=== PATIENT | female | born 1990 | race Caucasian/White ===

== ENCOUNTER 2020-03-21 23:53 | Emergency (ER) | payer BC ==
[~2020-03-21] VITALS: Ht 157.5 cm; Wt 59.0 kg
[2020-03-22 00:28] LABS: URINE HCG NEGATIVE (NEG)
[2020-03-22 00:58] LABS: CLARITY,URINE CLEAR (Clear); COLOR,URINE STRAW (Yellow); GLUCOSE, URINE 100 mg/dl (Neg); KETONES,URINE NEGATIVE (Neg); LEUKOCYTE ESTERASE ,URINE NEGATIVE (Neg); NITRITES, URINE NEGATIVE (Neg); OCCULT BLOOD,URINE TRACE-INTACT (Neg); PROTEIN,URINE NEGATIVE (Neg); UROBILINOGEN,URINE 0.2 E.U/dL (0.2-1.0)
[2020-03-22 01:00] LABS: UA COLLECTION TYPE CLN CATCH MIDSTREAM
[2020-03-22 01:07] LABS: BACTERIA,URINE NONE SEEN /HPF (Neg); MUCUS STRANDS NONE SEEN /LPF (Neg); RBC,URINE 0-2 /HPF (0-2); SQUAMOUS EPITHELIAL CELL,UR FEW /LPF (FEW); WBC,URINE NONE SEEN /HPF (0-4)
[2020-03-22] MEDS ORDERED: NAPR-56 PO (01:29)
[2020-03-22] MEDS ORDERED: FLO0.4C PO (01:29)
[2020-03-22] MEDS ORDERED: tamsulosin 0.4mg capsule PO SCH (01:30)
[2020-03-22] MEDS ORDERED: naproxen 500mg tablet PO ONE (01:30)
[2020-03-22 02:11] VITALS: BP 124/72
== END 2020-03-22 02:15 | disposition home or self-care (01) ==
LOC: ER 23:54
DX: N23 Unspecified renal colic (principal); Z87.442 Personal history of urinary calculi; Z79.899 Other long term (current) drug therapy
CPT/HCPCS: 81001; 81025; 99283

== ENCOUNTER 2020-03-24 18:44 | Emergency (ER) | payer BC ==
[~2020-03-24] VITALS: Ht 157.5 cm; Wt 54.5 kg
[~2020-03-24 18:44] MED LIST: FLO0.4C PO; NAPR-56 PO
[2020-03-24 18:47] VITALS: BP 139/89
[2020-03-24] MEDS ORDERED: normal saline 1000ML IV soln IVB ONE (18:55)
[2020-03-24 19:24] LABS: BASOPHILS % (AUTO) 0.2 % (0-1); EOSINOPHILS % (AUTO) 0 % (0-6); HEMATOCRIT 39.9 % (35.0-45.0); HEMOGLOBIN 13.2 g/dl (12.0-16.0); LYMPHOCYTES % (AUTO) 8.6 % (21-51); MEAN CORPUSCULAR HEMOGLOBIN 28.9 PG (27.0-31.0); MEAN CORPUSCULAR HGB CONC 33.2 g/dL (33.0-36.5); MEAN CORPUSCULAR VOLUME 87.2 FL (78-98); MEAN PLATELET VOLUME 8.1 FL (7.4-10.4); MONOCYTES # (AUTO) 0.2 X10'3 (0-0.9); MONOCYTES % (AUTO) 1.4 % (2-12); NEUTROPHILS % (AUTO) 89.8 % (42-75); PLATELET COUNT 305 X10'3 (140-440); RED BLOOD COUNT 4.57 X10'6 (4.20-5.60); RED CELL DISTRIBUTION WIDTH 14.4 % (11.5-14.5); WHITE BLOOD COUNT 11.2 X10'3 (4.5-11.0)
[2020-03-24 19:32] LABS: CLARITY,URINE CLEAR (Clear); COLOR,URINE STRAW (Yellow); GLUCOSE, URINE NEGATIVE (Neg); KETONES,URINE NEGATIVE (Neg); LEUKOCYTE ESTERASE ,URINE NEGATIVE (Neg); NITRITES, URINE NEGATIVE (Neg); OCCULT BLOOD,URINE NEGATIVE (Neg); PH,URINE 7.5 (4.8-8.0); PROTEIN,URINE NEGATIVE (Neg); URINE HCG NEGATIVE (NEG); UROBILINOGEN,URINE 0.2 E.U/dL (0.2-1.0)
[2020-03-24 19:33] LABS: UA COLLECTION TYPE CLN CATCH MIDSTREAM
[2020-03-24 19:43] LABS: ALANINE AMINOTRANSFERASE 27 U/L (12-78); ALBUMIN 4.6 G/DL (3.4-5.0); ALBUMIN/GLOBULIN RATIO 1.2 (1.1-1.5); ALKALINE PHOSPHATASE 82 IU/L (46-116); ANION GAP 12 (8-16); ASPARTATE AMINO TRANSFERASE 18 U/L (10-37); BILIRUBIN,TOTAL 0.3 MG/DL (0.1-1.0); BLOOD UREA NITROGEN 14 MG/DL (7-18); BUN/CREATININE RATIO 16.9 (6.6-38.0); CALCIUM 9.4 MG/DL (8.5-10.1); CHLORIDE 103 MMOL/L (99-107); CREATININE 0.83 MG/DL (0.40-0.90); GLUCOSE 118 MG/DL (70-104); POTASSIUM 3.5 MMOL/L (3.5-5.1); SODIUM 138 MMOL/L (135-145); TOTAL CARBON DIOXIDE 22.6 MMOL/L (24-32); TOTAL PROTEIN 8.4 G/DL (6.4-8.2); eGFR 81 ML/MIN
== END 2020-03-24 20:09 | disposition home or self-care (01) ==
LOC: ER 18:45
DX: E86.0 Dehydration (principal); R42 Dizziness and giddiness; R00.2 Palpitations; R06.02 Shortness of breath; Z87.442 Personal history of urinary calculi; Z79.899 Other long term (current) drug therapy
CPT/HCPCS: 36415; 80053; 81003; 81025; 85025; 93005; 99284; J7030

== ENCOUNTER 2020-04-07 12:14 | Emergency (ER) | payer BC ==
[~2020-04-07] VITALS: Ht 157.5 cm; Wt 60.0 kg
[2020-04-07 12:28] VITALS: BP 115/72
== END 2020-04-07 15:54 | disposition left against medical advice (07) ==
LOC: ER 12:14
DX: R05 Cough (principal); Z53.21 Procedure and treatment not carried out due to patient leaving prior to being seen by health care provider

== ENCOUNTER 2020-04-07 23:08 | Emergency (ER) | payer BC ==
[~2020-04-07] VITALS: Ht 157.5 cm; Wt 59.1 kg
[2020-04-08 01:01] VITALS: BP 123/82
== END 2020-04-08 01:05 | disposition home or self-care (01) ==
LOC: ER 23:09
DX: M79.662 Pain in left lower leg (principal); R05 Cough; Z87.442 Personal history of urinary calculi; Z79.899 Other long term (current) drug therapy
CPT/HCPCS: 93971; 99281

== ENCOUNTER 2022-01-11 14:18 | Emergency (ER) | payer BC, OTHER ==
[~2022-01-11] VITALS: Ht 157.5 cm; Wt 62.6 kg
[2022-01-11 14:27] VITALS: BP 139/78
== END 2022-01-11 16:31 | disposition home or self-care (01) ==
LOC: ER 14:18
DX: J06.9 Acute upper respiratory infection, unspecified (principal); Z20.822 Contact with and (suspected) exposure to COVID-19; R05.9 Cough, unspecified; R07.89 Other chest pain; Z87.442 Personal history of urinary calculi
CPT/HCPCS: 71045; 87635; 93005; 99285; C9803

== ENCOUNTER 2022-07-24 11:13 | Emergency (ER) | payer OTHER ==
[~2022-07-24] VITALS: Ht 157.5 cm; Wt 63.6 kg
[2022-07-24 11:17] VITALS: BP 120/63
[2022-07-24 12:45] LABS: CLARITY,URINE CLEAR (Clear); COLOR,URINE YELLOW (Yellow); GLUCOSE, URINE NEGATIVE (Neg); KETONES,URINE NEGATIVE (Neg); LEUKOCYTE ESTERASE ,URINE NEGATIVE (Neg); NITRITES, URINE NEGATIVE (Neg); OCCULT BLOOD,URINE NEGATIVE (Neg); PH,URINE 6.5 (4.8-8.0); PROTEIN,URINE NEGATIVE (Neg); UROBILINOGEN,URINE 0.2 E.U/dL (0.2-1.0)
[2022-07-24 12:51] LABS: BASOPHILS # (AUTO) 0.1 X10'3 (0-0.2); BASOPHILS % (AUTO) 0.8 % (0-1); EOSINOPHILS # (AUTO) 0.1 X10'3 (0-0.9); EOSINOPHILS % (AUTO) 0.8 % (0-6); HEMATOCRIT 38.5 % (35.0-45.0); HEMOGLOBIN 12.9 g/dl (12.0-16.0); LYMPHOCYTES # (AUTO) 1.7 X10'3 (1.1-4.8); LYMPHOCYTES % (AUTO) 21.4 % (21-51); MEAN CORPUSCULAR HEMOGLOBIN 30.6 PG (27.0-31.0); MEAN CORPUSCULAR HGB CONC 33.6 g/dL (33.0-36.5); MEAN CORPUSCULAR VOLUME 91.1 FL (78-98); MEAN PLATELET VOLUME 8.5 FL (7.4-10.4); MONOCYTES # (AUTO) 0.6 X10'3 (0-0.9); MONOCYTES % (AUTO) 7.7 % (2-12); NEUTROPHILS # (AUTO) 5.6 X10'3 (1.8-7.7); NEUTROPHILS % (AUTO) 69.3 % (42-75); PLATELET COUNT 225 X10'3 (140-440); RED BLOOD COUNT 4.23 X10'6 (4.20-5.60); RED CELL DISTRIBUTION WIDTH 12.6 % (11.5-14.5); WHITE BLOOD COUNT 8.1 X10'3 (4.5-11.0)
[2022-07-24 12:53] LABS: UA COLLECTION TYPE CLN CATCH MIDSTREAM; URINE HCG POSITIVE (NEG)
[2022-07-24 13:11] LABS: ALANINE AMINOTRANSFERASE 22 U/L (12-78); ALBUMIN/GLOBULIN RATIO 1.1 (1.1-1.5); ALKALINE PHOSPHATASE 55 IU/L (46-116); ANION GAP 9 (8-16); ASPARTATE AMINO TRANSFERASE 23 U/L (10-37); BILIRUBIN,TOTAL 0.2 MG/DL (0.1-1.0); BLOOD UREA NITROGEN 8 MG/DL (7-18); BUN/CREATININE RATIO 14.3 (10.0-20.0); CALCIUM 8.9 MG/DL (8.5-10.1); CHLORIDE 100 MMOL/L (99-107); CREATININE 0.56 MG/DL (0.40-0.90); GLUCOSE 83 MG/DL (70-104); POTASSIUM 3.5 MMOL/L (3.5-5.1); SODIUM 135 MMOL/L (135-145); TOTAL PROTEIN 7.6 G/DL (6.4-8.2); eGFR > 90 ML/MIN
[2022-07-24 13:38] LABS: BETA HCG,QUANTITATIVE 136105 mIU/ml
== END 2022-07-24 13:53 | disposition home or self-care (01) ==
LOC: ER 11:14
DX: O46.91 Antepartum hemorrhage, unspecified, first trimester (principal); F32.9 Major depressive disorder, single episode, unspecified; Z87.442 Personal history of urinary calculi; Z3A.01 Less than 8 weeks gestation of pregnancy; Z79.899 Other long term (current) drug therapy
CPT/HCPCS: 36415; 76801; 80053; 81003; 81025; 84702; 85025; 99284

== ENCOUNTER 2023-05-26 23:45 | Emergency (ER) | payer MEDICAID, OTHER ==
[~2023-05-26] VITALS: Ht 157.5 cm; Wt 68.0 kg
[2023-05-27 01:13] LABS: BASOPHILS % (AUTO) 0.7 % (0-1); EOSINOPHILS # (AUTO) 0.1 X10'3 (0-0.9); EOSINOPHILS % (AUTO) 1.6 % (0-6); HEMATOCRIT 39.6 % (35.0-45.0); HEMOGLOBIN 13.7 g/dl (12.0-16.0); LYMPHOCYTES # (AUTO) 3.4 X10'3 (1.1-4.8); LYMPHOCYTES % (AUTO) 47.9 % (21-51); MEAN CORPUSCULAR HEMOGLOBIN 30.1 PG (27.0-31.0); MEAN CORPUSCULAR HGB CONC 34.6 g/dL (33.0-36.5); MEAN PLATELET VOLUME 8.8 FL (7.4-10.4); MONOCYTES # (AUTO) 0.7 X10'3 (0-0.9); MONOCYTES % (AUTO) 10.1 % (2-12); NEUTROPHILS # (AUTO) 2.8 X10'3 (1.8-7.7); NEUTROPHILS % (AUTO) 39.7 % (42-75); PLATELET COUNT 216 X10'3 (140-440); RED BLOOD COUNT 4.56 X10'6 (4.20-5.60); RED CELL DISTRIBUTION WIDTH 13.7 % (11.5-14.5)
[2023-05-27 01:21] LABS: ALBUMIN 4.2 G/DL (3.4-5.0); ANION GAP 10 (8-16); BLOOD UREA NITROGEN 19 MG/DL (7-18); BUN/CREATININE RATIO 23.8 (10.0-20.0); CALCIUM 9.5 MG/DL (8.5-10.1); CHLORIDE 102 MMOL/L (99-107); GLUCOSE 90 MG/DL (70-104); POTASSIUM 3.5 MMOL/L (3.5-5.1); SODIUM 138 MMOL/L (135-145); THYROID STIMULATING HORMONE 4.11 ulU/ml (0.34-4.50); TOTAL CARBON DIOXIDE 26.4 MMOL/L (24-32); eCRCL 79 ML/MIN; eGFR 83 ML/MIN
[2023-05-27 01:54] VITALS: BP 118/76; PULSE 51; RESP 14; TEMP 98.3; O2SAT 97
== END 2023-05-27 02:01 | disposition home or self-care (01) ==
LOC: ER 23:46
DX: R00.2 Palpitations (principal)
CPT/HCPCS: 36415; 80048; 84443; 85025; 93005; 99284

== ENCOUNTER 2023-05-31 09:40 | Emergency (ER) | payer MEDICAID ==
[~2023-05-31] VITALS: Ht 157.5 cm; Wt 66.5 kg
[2023-05-31] MEDS: mag hydrox/Alum hydrox/simeth 30ml oral suspension PO ONE (11:10)
[2023-05-31] MEDS: LIDOcaine Viscous 15ml cup MM PRN (11:10)
[2023-05-31] MEDS ORDERED: OMEP40CA21 PO (11:18)
[2023-05-31 11:30] VITALS: BP 121/80; PULSE 69; RESP 17; TEMP 98.1; O2SAT 98
== END 2023-05-31 11:31 | disposition home or self-care (01) ==
LOC: ER 09:41
DX: K21.9 Gastro-esophageal reflux disease without esophagitis (principal); Z79.899 Other long term (current) drug therapy
CPT/HCPCS: 99283

== ENCOUNTER 2023-12-04 14:54 | Outpatient (CLI) | payer MEDICAID | END 2023-12-04 23:59 | disposition home or self-care (01) | LOC: CARD DIAG 14:54 | PROVIDERS: ATTEND Family Medicine | DX: I08.8 Other rheumatic multiple valve diseases (principal); R00.2 Palpitations | CPT/HCPCS: 93306 ==

== ENCOUNTER 2023-12-28 14:30 | Outpatient (CLI) | payer MEDICAID ==
[2023-12-28 16:13] VITALS: PULSE 79; RESP 16; O2SAT 98
== END 2023-12-28 23:59 | disposition home or self-care (01) ==
LOC: RT 14:30
PROVIDERS: ATTEND Family Medicine
DX: R09.A2 Foreign body sensation, throat (principal); R06.02 Shortness of breath
CPT/HCPCS: 76536; 94010; 94760